=== PATIENT | male | born 1970 | race Caucasian/White ===

== ENCOUNTER → 2021-03-03 | Outpatient (CLI) | payer OTHER ==
[~2021-03-03] MED LIST: CYCLOBENZAPRINE5 MG PO; IBUPROFEN800 MG PO
== END ==
LOC: EMI 14:18
DX: M50.122 Cervical disc disorder at C5-C6 level with radiculopathy (principal)
CPT/HCPCS: 72141

== ENCOUNTER → 2021-03-24 | Outpatient (CLI) | payer OTHER | LOC: KOH-I 08:56 | DX: M47.22 Other spondylosis with radiculopathy, cervical region (principal) | CPT/HCPCS: 72125 ==

== ENCOUNTER → 2021-06-06 | Day surgery (SDC) | payer OTHER ==
[~2021-06-06] MED LIST changes: +ABILIFY20 MG PO; +BACLOFEN20 MG PO; +LISINOPRIL40 MG PO; +PROPRANOLOL HCL20 MG PO; +VENLAFAXINE H37.5 M2 PO; +ZOLOFT100 MG PO
[2021-06-06 13:34] LABS: HEMOGLOBIN 16.7 gm/dl (14.0-17.5); RED BLOOD COUNT 5.32 M/UL (4.20-5.50)
[2021-06-06 14:06] LABS: BUN/CREATININE RATIO 5 (0-10)
== END | disposition home or self-care (01) ==
LOC: OPSV2 12:00
PROVIDERS: Orthopaedic Surgery
DX: Z01.818 Encounter for other preprocedural examination (principal); M19.011 Primary osteoarthritis, right shoulder; J84.9 Interstitial pulmonary disease, unspecified; R60.9 Edema, unspecified
CPT/HCPCS: 71046; 80048; 81001; 85027; 87081; 93005

== ENCOUNTER 2021-06-15 19:22 | Emergency (ER) | payer OTHER ==
[2021-06-15 20:12] LABS: HEMOGLOBIN 14.8 gm/dl (14.0-17.5); WHITE BLOOD COUNT 9.5 K/UL (4.5-11.0)
[2021-06-15 20:28] LABS: BUN/CREATININE RATIO 7 (0-10)
[2021-06-16] MEDS ORDERED: HYDROCODON-ACE1 EAC4 PO (02:16)
== END 2021-06-16 02:21 | disposition home or self-care (01) ==
LOC: ER1 19:22
PROVIDERS: Physician Assistant
DX: R10.84 Generalized abdominal pain (principal); I10 Essential (primary) hypertension; Z90.49 Acquired absence of other specified parts of digestive tract; F17.220 Nicotine dependence, chewing tobacco, uncomplicated
CPT/HCPCS: 80053; 81001; 83690; 85025; 99284; Q9967

== ENCOUNTER → 2021-08-14 | Outpatient (CLI) | payer OTHER ==
[~2021-08-14] MED LIST changes: +BENZTROPINE; +GABAPENTIN800 MG PO; +HYDROCODON-ACE1 EAC4 PO; +KLONOPIN TAB 00.5 MG PO; +PRAZOSIN HCL2 MG PO; +TRAZODONE HCL150 MG PO
[2021-08-14 10:59] LABS: HEMOGLOBIN 17.2 gm/dl (14.0-17.5); RED BLOOD COUNT 5.55 M/UL (4.20-5.50)
[2021-08-14 11:21] LABS: BUN/CREATININE RATIO 8 (0-10)
== END ==
LOC: OPSV2 09:59 → EDSTATUS 10:00 → OPSV2 10:00
PROVIDERS: Orthopaedic Surgery
DX: Z01.818 Encounter for other preprocedural examination (principal); M19.011 Primary osteoarthritis, right shoulder
CPT/HCPCS: 71046; 80048; 85027; 93005